=== PATIENT | female | born 2000 | race Caucasian/White ===

== ENCOUNTER → 2018-12-30 21:11 | Observation (INO) ==
[2018-12-30 19:45] LABS: Basophils # 0.1 K/mcL (0.0-0.2); Basophils % 0.4 %; Eosinophils # 0.3 K/mcL (0.0-0.6); Eosinophils % 2.2 %; Hematocrit 31.1 % (35.3-44.9); Hemoglobin 10.9 g/dL (11.5-15.4); Immature Granulocytes % 0.6 % (0-4); Lymphocytes # 2.6 K/mcL (0.6-4.6); Lymphocytes % 20.7 %; Mean Corpuscular Hemoglobin 32.6 pg (28.0-33.3); Mean Corpuscular Volume 93.1 fL (83.0-100.0); Mean Platelet Volume 9.4 fL (9.4-12.4); Monocytes # 1.2 K/mcL (0.0-1.3); Monocytes % 9.8 %; Neutrophils # 8.3 K/mcL (1.6-8.9); Platelet Count 305 K/mcL (140-400); Red Blood Count 3.34 M/mcL (3.82-4.97); Red Cell Distribution Width 11.9 % (11.5-14.5); Segmented Neutrophils % 66.3 %; White Blood Count 12.5 K/mcL (4.3-11.1)
[2018-12-30 19:55] LABS: Amphetamine Screen,Urine Negative ng/mL (Cutoff=1000); Barbiturate Screen,Urine Negative ng/mL (Cutoff=200); Benzodiazepines Screen,Urine Negative ng/mL (Cutoff=200); Cannabinoid Screen,Urine Negative ng/mL (Cutoff = 50); Cocaine Screen,Urine Negative ng/mL (Cutoff= 300); Opiate Screen,Urine Negative ng/mL (Cutoff=300); Phencyclidine Screen,Urine Negative ng/mL (Cutoff=25)
== END | disposition home or self-care (01) ==
LOC: 1NENULAB
PROVIDERS: ADMIT Advanced Practice Midwife; ATTEND Advanced Practice Midwife

== ENCOUNTER 2019-04-28 03:46 | Inpatient (IN) ==
[2019-04-28] MEDS ORDERED: Naloxone 0.4 MG/ML INJ IVP PRN (03:47)
[2019-04-28] MEDS ORDERED: Lidocaine 1% 20 ML MDV INFILT PRN (03:47)
[2019-04-28] MEDS ORDERED: Metoclopramide 10 MG/2 ML VIAL IVP PRN (03:47)
[2019-04-28] MEDS ORDERED: Famotidine 20 MG/2 ML VIAL IVP PRN (03:47)
[2019-04-28] MEDS ORDERED: Penicillin G Potassium 5,000,000 UNIT in 0.9 % Sodium Chloride Mini Bag 100 ML IVPB ONE (04:00)
[2019-04-28] MEDS: Ringers Solution, Lactated 1,000 ML IVC SCH ×2 (04:42→14:11)
[2019-04-28 04:52] LABS: Basophils % 0.5 %; Eosinophils # 0.3 K/mcL (0.0-0.6); Eosinophils % 3.7 %; Hematocrit 30.2 % (35.3-44.9); Hemoglobin 10.2 g/dL (11.5-15.4); Immature Granulocytes % 1.2 % (0-4); Lymphocytes # 2.2 K/mcL (0.6-4.6); Lymphocytes % 25.6 %; Mean Corpuscular HGB Conc 33.8 g/dL (31.6-35.5); Mean Corpuscular Hemoglobin 31.3 pg (28.0-33.3); Mean Corpuscular Volume 92.6 fL (83.0-100.0); Mean Platelet Volume 10.7 fL (9.4-12.4); Monocytes # 0.8 K/mcL (0.0-1.3); Monocytes % 9.7 %; Neutrophils # 5.1 K/mcL (1.6-8.9); Platelet Count 274 K/mcL (140-400); Red Blood Count 3.26 M/mcL (3.82-4.97); Red Cell Distribution Width 11.9 % (11.5-14.5); Segmented Neutrophils % 59.3 %; White Blood Count 8.6 K/mcL (4.3-11.1)
[2019-04-28 04:57] LABS: Amphetamine Screen,Urine Negative ng/mL (Cutoff=1000); Barbiturate Screen,Urine Negative ng/mL (Cutoff=200); Benzodiazepines Screen,Urine Negative ng/mL (Cutoff=200); Cannabinoid Screen,Urine Negative ng/mL (Cutoff = 50); Cocaine Screen,Urine Negative ng/mL (Cutoff= 300); Opiate Screen,Urine Negative ng/mL (Cutoff=300); Phencyclidine Screen,Urine Negative ng/mL (Cutoff=25)
[2019-04-28] MEDS: miSOPROStoL 25 MCG TABLET PO PRN ×2 (05:20→09:21)
[2019-04-28] MEDS ORDERED: EPHEDrine 50 MG/ML VIAL IVP PRN (08:30)
[2019-04-28] MEDS: Penicillin G Potassium 2,500,000 UNIT in 0.9 % Sodium Chloride 100 ML IVPB SCH ×4 (09:18→21:34)
[2019-04-28] MEDS: *HR* FentaNYL (PF) 100 MCG/2 ML VIAL IVP PRN ×2 (10:47→13:22)
[2019-04-28] MEDS: Ondansetron 4 MG/2 ML VIAL IVP PRN ×2 (14:14→18:58)
[2019-04-28] MEDS: Epidural Premix (fent/bupiv) 110 ML EP SCH ×2 (14:41→21:32)
[2019-04-28] MEDS ORDERED: Oxytocin 20 units/ LR 1000 mL 20 UNIT/1,000 ML BAG IVC SCH (17:00)
[2019-04-28] MEDS ORDERED: *HR* Promethazine 25 MG/ML VIAL IVP PRN (19:27)
[2019-04-29] MEDS ORDERED: *HR* Ropivacaine/PF 0.5% 20 ML VIAL ONE (01:03)
[2019-04-29] MEDS: Penicillin G Potassium 2,500,000 UNIT in 0.9 % Sodium Chloride 100 ML IVPB SCH (01:16)
[2019-04-29] MEDS ORDERED: Acetaminophen 325 MG TABLET PO ONE (01:20)
[2019-04-29] MEDS: Ringers Solution, Lactated 1,000 ML IVC SCH (03:59)
[2019-04-29] MEDS ORDERED: Acetaminophen 325 MG TABLET PO PRN (07:31)
[2019-04-29] MEDS ORDERED: Benzocaine/Menthol 56 GM AEROSOL SPRAY TP PRN (07:31)
[2019-04-29] MEDS ORDERED: Measles/Mumps/Rubella Vacc 0.5 ML VIAL SQ PRN (07:31)
[2019-04-29] MEDS ORDERED: *HR* HYDROcodone/Acet 5/325 mg TABLET PO PRN (07:31)
[2019-04-29] MEDS ORDERED: Oxytocin 20 units/ LR 1000 mL 20 UNIT/1,000 ML BAG IVC SCH (07:31)
[2019-04-29] MEDS ORDERED: Rho Immune Globulin 1,500 UNIT SYRINGE IM PRN (07:31)
[2019-04-29] MEDS ORDERED: Lanolin 7 G OINT...G. TP PRN (07:31)
[2019-04-29] MEDS: Prenatal Vit/FA 1 EACH TABLET PO SCH (07:59)
[2019-04-29] MEDS: Ibuprofen 600 MG TABLET PO PRN ×3 (07:59→21:49)
[2019-04-30] MEDS: Ibuprofen 600 MG TABLET PO PRN (04:09)
[2019-04-30 07:40] VITALS: BP 118/71
[2019-04-30] MEDS: Prenatal Vit/FA 1 EACH TABLET PO SCH (08:55)
== END 2019-04-30 12:40 | disposition home or self-care (01) | DRG 807 ==
LOC: 1NENULAB 03:46 → 1NENUOBS 04-29 08:03
PROVIDERS: ADMIT Obstetrics & Gynecology; ATTEND Obstetrics & Gynecology

== ENCOUNTER → 2021-01-29 22:12 | Observation (INO) ==
[2021-01-29 21:50] LABS: Bilirubin,Urine Negative (Negative); Blood,Urine Negative (Negative); Clarity,Urine Clear (Clear); Color,Urine Light-Yellow (Yellow); Glucose,Urine (UA) Normal (Normal); Ketones,Urine 60 mg/dL (Negative); Leukocyte Esterase,Urine Negative (Negative); Nitrite,Urine Negative (Negative); Protein,Urine Trace mg/dL (Neg-Trace); Specific Gravity,Urine > 1.030 (1.010-1.025); Urobilinogen,Urine Normal (Normal)
== END | disposition home or self-care (01) ==
LOC: 1NENULAB
PROVIDERS: ADMIT Advanced Practice Midwife; ATTEND Advanced Practice Midwife

== ENCOUNTER 2021-04-13 19:09 | Observation (INO) ==
[2021-04-13] MEDS ORDERED: Ringers Solution, Lactated 1,000 ML IVC ONE (19:31)
[2021-04-13 20:06] LABS: Basophils % 0.3 %; Eosinophils # 0.3 K/mcL (0.0-0.6); Eosinophils % 2.4 %; Hematocrit 30.4 % (35.3-44.9); Hemoglobin 10.6 g/dL (11.5-15.4); Immature Granulocytes % 1.3 % (0-4); Lymphocytes # 2.4 K/mcL (0.6-4.6); Lymphocytes % 23.2 %; Mean Corpuscular HGB Conc 34.9 g/dL (31.6-35.5); Mean Corpuscular Hemoglobin 31.5 pg (28.0-33.3); Mean Corpuscular Volume 90.2 fL (83.0-100.0); Monocytes # 1.3 K/mcL (0.0-1.3); Monocytes % 12.1 %; Neutrophils # 6.3 K/mcL (1.6-8.9); Platelet Count 300 K/mcL (140-400); Red Blood Count 3.37 M/mcL (3.82-4.97); Red Cell Distribution Width 11.4 % (11.5-14.5); Segmented Neutrophils % 60.7 %; White Blood Count 10.4 K/mcL (4.3-11.1)
[2021-04-13 20:26] LABS: Bacteria,Urine Few per hpf (None-Few); Bilirubin,Urine Negative (Negative); Blood,Urine Negative (Negative); Clarity,Urine Clear (Clear); Color,Urine Yellow (Yellow); Glucose,Urine (UA) Normal (Normal); Ketones,Urine Negative (Negative); Leukocyte Esterase,Urine Negative (Negative); Mucus,Urine Few per lpf (None-Few); Nitrite,Urine Negative (Negative); Protein,Urine 30 mg/dL (Neg-Trace); RBC,Urine 0-3 per hpf (0-3); Specific Gravity,Urine > 1.030 (1.010-1.025); Squamous Epithelial Cell,Urine Few per hpf (None-Few); Urobilinogen,Urine Normal (Normal); WBC,Urine 0-3 per hpf (0-3)
[2021-04-13] MEDS ORDERED: Rho Immune Globulin 1,500 UNIT SYRINGE IM ONE (21:57)
[2021-04-13] MEDS ORDERED: Betamethasone Acet/SodPhos 30 MG/5 ML VIAL IM SCH (22:00)
[2021-04-13] MEDS: Ringers Solution, Lactated 1,000 ML IVC SCH (22:30)
[2021-04-14 04:34] LABS: Basophils % 0.3 %; Eosinophils % 0.3 %; Hematocrit 29.3 % (35.3-44.9); Hemoglobin 10.1 g/dL (11.5-15.4); Immature Granulocytes % 1.5 % (0-4); Lymphocytes # 1.5 K/mcL (0.6-4.6); Mean Corpuscular HGB Conc 34.5 g/dL (31.6-35.5); Mean Corpuscular Hemoglobin 31.6 pg (28.0-33.3); Mean Corpuscular Volume 91.6 fL (83.0-100.0); Monocytes # 0.4 K/mcL (0.0-1.3); Monocytes % 3.6 %; Neutrophils # 8.5 K/mcL (1.6-8.9); Platelet Count 264 K/mcL (140-400); Red Cell Distribution Width 11.5 % (11.5-14.5); Segmented Neutrophils % 80.3 %; White Blood Count 10.6 K/mcL (4.3-11.1)
[2021-04-14] MEDS: Ringers Solution, Lactated 1,000 ML IVC SCH (09:36)
== END 2021-04-14 10:40 | disposition home or self-care (01) ==
LOC: 1NENULAB
PROVIDERS: ADMIT Advanced Practice Midwife; ATTEND Advanced Practice Midwife

== ENCOUNTER → 2021-04-14 21:58 | Observation (INO) ==
[~2021-04-14 21:58] MED LIST: Betamethasone Acet/SodPhos 30 MG/5 ML VIAL IM SCH
== END | disposition home or self-care (01) ==
LOC: 1NENULAB
PROVIDERS: ADMIT Registered Nurse; ATTEND Registered Nurse

== ENCOUNTER 2021-06-08 12:17 | Inpatient (IN) ==
[2021-06-08] MEDS: Ringers Solution, Lactated 1,000 ML IVC SCH ×2 (08:29→09:31)
[2021-06-08 08:52] LABS: Basophils % 0.4 %; Eosinophils # 0.2 K/mcL (0.0-0.6); Eosinophils % 2.3 %; Immature Granulocytes % 0.8 % (0-4); Lymphocytes # 2.4 K/mcL (0.6-4.6); Lymphocytes % 23.7 %; Mean Corpuscular HGB Conc 33.3 g/dL (31.6-35.5); Mean Corpuscular Hemoglobin 29.3 pg (28.0-33.3); Mean Corpuscular Volume 87.8 fL (83.0-100.0); Mean Platelet Volume 10.6 fL (9.4-12.4); Monocytes % 9.5 %; Neutrophils # 6.4 K/mcL (1.6-8.9); Platelet Count 251 K/mcL (140-400); Red Blood Count 3.76 M/mcL (3.82-4.97); Red Cell Distribution Width 12.4 % (11.5-14.5); Segmented Neutrophils % 63.3 %; White Blood Count 10.1 K/mcL (4.3-11.1)
[2021-06-08 09:22] LABS: Influenza A PCR Negative (Negative); Influenza B PCR Negative (Negative); Resp. Syncytial Virus PCR Negative (Negative); SARS-CoV-2 by PCR (In House) Negative (Negative)
[2021-06-08 10:23] LABS: Amphetamine Screen,Urine Negative ng/mL (Cutoff=1000); Barbiturate Screen,Urine Negative ng/mL (Cutoff=200); Benzodiazepines Screen,Urine Negative ng/mL (Cutoff=200); Cannabinoid Screen,Urine Negative ng/mL (Cutoff = 50); Cocaine Screen,Urine Negative ng/mL (Cutoff= 300); Opiate Screen,Urine Negative ng/mL (Cutoff=300); Phencyclidine Screen,Urine Negative ng/mL (Cutoff=25)
[~2021-06-08 12:17] MED LIST changes: -Betamethasone Acet/SodPhos 30 MG/5 ML VIAL IM SCH; +EPHEDrine 50 MG/ML VIAL IVP PRN; +Epidural Premix (fent/bupiv) 110 ML EP SCH; +Famotidine 20 MG/2 ML VIAL IVP PRN; +Lidocaine 1% 20 ML MDV INFILT PRN; +Metoclopramide 10 MG/2 ML VIAL IVP PRN; +Naloxone 0.4 MG/ML INJ IVP PRN; +Oxytocin 30 UNIT/503 ML BAG IVC ONE; +Ringers Solution, Lactated 1,000 ML ONE
[2021-06-08] MEDS ORDERED: Benzocaine/Menthol 56 GM AEROSOL SPRAY TP PRN (14:28)
[2021-06-08] MEDS ORDERED: Rho Immune Globulin 1,500 UNIT SYRINGE IM PRN (14:28)
[2021-06-08] MEDS ORDERED: Lanolin 7 G OINT...G. TP PRN (14:28)
[2021-06-08] MEDS ORDERED: Oxytocin 30 UNIT/503 ML BAG IVC SCH (14:28)
[2021-06-08] MEDS ORDERED: Ondansetron ODT 4 MG TAB.RAPDIS SL PRN (14:28)
[2021-06-08] MEDS ORDERED: *HR* OxyCODONE Immed Rel 5 MG TABLET PO PRN (14:28)
[2021-06-08] MEDS: Acetaminophen 325 MG TABLET PO SCH ×2 (14:34→23:11)
[2021-06-08] MEDS: Ibuprofen 600 MG TABLET PO SCH (23:11)
[2021-06-09] MEDS: Ibuprofen 600 MG TABLET PO SCH ×2 (04:28→10:39)
[2021-06-09] MEDS: Acetaminophen 325 MG TABLET PO SCH ×2 (04:28→10:40)
[2021-06-09 05:01] LABS: Basophils % 0.3 %; Eosinophils # 0.3 K/mcL (0.0-0.6); Eosinophils % 2.1 %; Hematocrit 28.4 % (35.3-44.9); Hemoglobin 9.5 g/dL (11.5-15.4); Immature Granulocytes % 0.5 % (0-4); Lymphocytes # 2.6 K/mcL (0.6-4.6); Lymphocytes % 21.7 %; Mean Corpuscular HGB Conc 33.5 g/dL (31.6-35.5); Mean Corpuscular Hemoglobin 29.5 pg (28.0-33.3); Mean Corpuscular Volume 88.2 fL (83.0-100.0); Mean Platelet Volume 10.4 fL (9.4-12.4); Monocytes # 1.2 K/mcL (0.0-1.3); Monocytes % 9.9 %; Neutrophils # 7.8 K/mcL (1.6-8.9); Platelet Count 213 K/mcL (140-400); Red Blood Count 3.22 M/mcL (3.82-4.97); Red Cell Distribution Width 12.3 % (11.5-14.5); Segmented Neutrophils % 65.5 %
[2021-06-09 06:53] VITALS: BP 98/54; PULSE 98; TEMP 98.4; O2SAT 99
[2021-06-09] MEDS ORDERED: Prenatal Vit/FA 1 EACH TABLET PO SCH (09:00)
== END 2021-06-09 15:09 | disposition home or self-care (01) | DRG 807 ==
LOC: 1NENULAB → 1NENUOBS 16:10
PROVIDERS: ADMIT Advanced Practice Midwife; ATTEND Advanced Practice Midwife